=== PATIENT | female | born 1975 | race Caucasian/White ===

== ENCOUNTER 2018-05-15 11:59 | Emergency (ER) | payer OTHER ==
[2018-05-15 12:04] VITALS: BP 134/71; TEMP 97.3; BMI 18.3
--- NOTE | 2018-05-15 13:39 | CT ---
EXAM: CT of the right knee without contrast History: Medial right knee pain and swelling. Technique: Multiplanar CT images through the right knee were obtained without the administration of IV contrast Findings: Osteopenia. Atherosclerotic vascular calcifications. No acute fracture or dislocation. No evidence for osteomyelitis. There is anterior subcutaneous edema. Small joint effusion. Joint sp aces are relatively preserved. Impression: 1. No acute osseous abnormality. 2. Anterior subcutaneous edema could be due to infection or trauma. 3. Small knee joint effusion. 4. Atherosclerotic vascular disease. 5. Osteopenia
--- NOTE | 2018-05-15 14:17 | ED.PDOC ---
General ED Provider: Dr. TIRSO HUBER Chief Complaint: Knee Pain/Injury Stated Complaint: knee pain right side Time Seen by Physician: 12:00 (see photos) Mode of Arrival: Walk-In Information Source: Patient Exam Limitations: No limitations Primary Care Provider: SENAIT PRICE Nursing and Triage Documentation Reviewed and Agree: Yes Does patient meet sepsis criteria?: No System Inflammatory Response Syndrome: Not Applicable (does not recall injury) Sepsis Protocol: For patient's 13 years and over: Temp is 96.8 and below OR 101 and greater Pulse >90 BPM Resp >20/minute Acutely Altered Mental Status Are patient's symptoms suggestive of a new infection, such as: -Pneumonia -Skin, Soft Tissue -Endocarditis -UTI -Bone, Joint Infection -Implantable Device -Acute Abdominal Infection -Wound Infection -Meningitis -Blood Stream Catheter Infection -Unknown Musculoskeletal Complaint Exam - Knee Pain Complaint/Exam Mechanism of Injury: Reports: No known trauma Onset/Duration: 2 days Symptoms Are: Still present Onset of Pain: Reports: Days Initial Severity: Mild Current Severity: Mild Location: Reports: Discrete Character: Reports: Aching, Spasmodic Alleviating: Reports: Rest, Position Aggravating: Reports: Movement, Weight bearing, Prolonged standing Associated Signs and Symptoms: Reports: Swelling (mild ). Denies: Redness, Bruising, Fever, Weakness, Numbness, Tingling Able to Bear Weight: Yes Septic Arthritis Risk Factors: Reports: None Gout Risk Factors: Reports: >40 years old Knee Findings: Present: Swelling, Erythema, Tenderness. Absent: Ecchymosis, Abnormal contour, Rotation, Ligamentous instability, Laceration, Warmth, Blisters, Other joint pain, Foreign body, Limited range of motion Tenderness: Present: Pre-patellar Jessica Test Positive: No Isis Test Positive: No Differential Diagnoses: Sprain, Strain Review of Systems - Review Of Systems Constitutional: Reports: No symptoms Eyes: Reports: No symptoms Ears, Nose, Mouth, Throat: Reports: No symptoms Respiratory: Reports: No symptoms Cardiac: Reports: No symptoms GI: Reports: No symptoms : Reports: No symptoms Musculoskeletal: Reports: Joint pain (right knee ) Skin: Reports: No symptoms Neurological: Reports: No symptoms Endocrine: Reports: No symptoms Hematologic/Lymphatic: Reports: No symptoms All Other Systems: Reviewed and Negative Past Medical History - Past Medical History Previously Healthy: Yes Endocrine: Reports: DM 2 Cardiovascular: Reports: Hypertension Respiratory: Reports: None Hematological: Reports: None Gastrointestinal: Reports: None Genitourinary: Reports: None Neuro/Psych: Reports: None Musculoskeletal: Reports: None Cancer: Reports: None Last Menstrual Period: [id number] - Surgical History General Surgical History: Reports: None - Family History Family History: Reports: None - Social History Smoking Status: Current every day smoker, Heavy tobacco smoker Hx Substance Use: No Alcohol Screening: None - Immunizations Tetanus Shot up to Date: Yes Physical Exam - Physical Exam Appearance: Well-appearing, No pain distress, Well-nourished Eyes: ASHER, EOMI, Conjunctiva clear ENT: Ears normal, Nose normal, Oropharynx normal Respiratory: Airway patent, Breath sounds clear, Breath sounds equal, Respirations nonlabored Cardiovascular: RRR, Pulses normal, No rub, No murmur GI/: Soft, Nontender, No masses, Bowel sounds normal, No Organomegaly Musculoskeletal: Normal strength, ROM intact, No edema, No calf tenderness Skin: Warm, Dry, Normal color Neurological: Sensation intact, Motor intact, Reflexes intact, Cranial nerves intact, Alert, Oriented Psychiatric: Affect appropriate, Mood appropriate Interpretation - Radiology Interpretation Radiology Interpretation By: Radiologist Radiology Results: No acute changes Critical Care Note - Critical Care Note Total Time (mins): 0 Course - Course Orders, Labs, Meds: Lab Review 05/15/18 12:30 Urine Test Negative Orders Category Date Time Status TEST URINE [URINE ] Stat LAB 05/15/18 12:[address] KNEE RIGHT WITHOUT CONTRAST Stat RADS 05/15/18 12:12 Completed Vital Signs: Temp Pulse Resp BP Pulse Ox 05/15/18 11:59 97.3 F L 106 H 16 134/71 98 Departure - Departure Time of Disposition: 14:17 (knee feels warm the is evidence of abrasion surronding the knee will tx for cellulitis) Disposition: HOME SELF-CARE Discharge Problem: Knee pain Cellulitis Qualifiers: Site of cellulitis of extremity: lower extremity Instructions: Osteoarthritis (ED), Knee Sprain (ED), Arthralgia (ED), Knee Pain (ED) Condition: Good Pt referred to PMD for follow-up: Yes IPMP verified?: No Additional Instructions: Please call your Family Physician as soon as possible to schedule a follow-up appointment. Prescriptions: Amoxicillin 500 mg PO Q6HR #30 tablet Allergies/Adverse Reactions: Allergies No Known Allergies Allergy (Unverified 05/15/18 12:04) Home Medications: Ambulatory Orders Amoxicillin 500 mg PO Q6HR #30 tablet 05/15/18 Duloxetine HCl [Cymbalta] 30 mg PO DAILY 05/15/18 Gabapentin 300 mg PO TID 05/15/18 Insulin Lispro [Humalog] 100 unit SUBCUT PRN PRN 05/15/18
== END 2018-05-15 14:28 | disposition home or self-care (01) ==
LOC: ED 11:59
DX: M25.561 Pain in right knee (principal); L03.115 Cellulitis of right lower limb; F17.210 Nicotine dependence, cigarettes, uncomplicated
CPT/HCPCS: 81025; 99282

== ENCOUNTER 2018-06-09 08:31 | Emergency (ER) ==
[2018-06-09 08:35] VITALS: BP 139/73; TEMP 98; BMI 20.1
--- NOTE | 2018-06-09 08:44 | ED.PDOC ---
General ED Provider: Dr. TIRSO HUBER Chief Complaint: Tooth Problem Stated Complaint: dental pain Time Seen by Physician: 08:33 (álvaro bustamante RN present ) Mode of Arrival: Walk-In Information Source: Patient Exam Limitations: No limitations Primary Care Provider: [address] Nursing and Triage Documentation Reviewed and Agree: Yes Does patient meet sepsis criteria?: Yes If yes, has appropriate treatment been initiated?: No System Inflammatory Response Syndrome: Not Applicable Sepsis Protocol: For patient's 13 years and over: Temp is 96.8 and below OR 101 and greater Pulse >90 BPM Resp >20/minute Acutely Altered Mental Status Are patient's symptoms suggestive of a new infection, such as: -Pneumonia -Skin, Soft Tissue -Endocarditis -UTI -Bone, Joint Infection -Implantable Device -Acute Abdominal Infection -Wound Infection -Meningitis -Blood Stream Catheter Infection -Unknown EENT Complaint Exam - Dental/Oral Complaint/Exam Mechanism of Injury: No known trauma Onset/Duration: 2 days Symptoms Are: Still present Timing: Constant Initial Severity: Moderate Current Severity: Moderate Character: Reports: Aching Aggravating: Reports: Heat, Cold Alleviating: Reports: None, Heat Associated Signs and Symptoms: Reports: Swelling (face see photos). Denies: Discharge, Fever, Foul odor, Foul taste in mouth Cardiac Risk Factors: Reports: None Dental/Oral Surgical History: Reports: None Tooth Findings: Present: Gross decay, Gross caries Cervical Lymphadenopathy Present: No Facial Swelling Present: Yes Bleeding Present: No Oropharynx Findings: Absent: Clots, Active bleeding Septal Hematoma: No Foreign Body Present: No Dysphagia Present: No Drooling Present: No Asymmetrical Tonsillar Swelling Present: No Uvula Midline: Yes Candis-tonsillar Fluctuence: No Lesions: Absent: Lip, Gums, Tongue, Buccal Mucosa, Pharynx Exanthem: Absent: Lip, Gums, Tongue, Buccal Mucosa, Pharynx Vesicles: Absent: Lip, Gums, Tongue, Buccal Mucosa, Pharynx Teeth Picture: 1 - decay Differential Diagnoses: Dental Caries Review of Systems - Review Of Systems Constitutional: Reports: No symptoms Eyes: Reports: No symptoms Ears, Nose, Mouth, Throat: Reports: No symptoms Respiratory: Reports: No symptoms Cardiac: Reports: No symptoms GI: Reports: No symptoms : Reports: No symptoms Musculoskeletal: Reports: No symptoms Skin: Reports: No symptoms Neurological: Reports: No symptoms Endocrine: Reports: No symptoms Hematologic/Lymphatic: Reports: No symptoms All Other Systems: Reviewed and Negative Past Medical History - Past Medical History Previously Healthy: Yes Endocrine: Reports: DM 2 Cardiovascular: Reports: Hypertension Respiratory: Reports: None Hematological: Reports: None Gastrointestinal: Reports: None Genitourinary: Reports: None Neuro/Psych: Reports: None Musculoskeletal: Reports: None Cancer: Reports: None Last Menstrual Period: last week - Surgical History General Surgical History: Reports: None - Family History Family History: Reports: None - Social History Smoking Status: Current every day smoker, Heavy tobacco smoker Hx Substance Use: No Alcohol Screening: None Physical Exam - Physical Exam Appearance: Well-appearing, No pain distress, Well-nourished Eyes: ASHER, EOMI, Conjunctiva clear ENT: Ears normal, Nose normal, Oropharynx normal Respiratory: Airway patent, Breath sounds clear, Breath sounds equal, Respirations nonlabored Cardiovascular: RRR, Pulses normal, No rub, No murmur GI/: Soft, Nontender, No masses, Bowel sounds normal, No Organomegaly Musculoskeletal: Normal strength, ROM intact, No edema, No calf tenderness Skin: Warm, Dry, Normal color Neurological: Sensation intact, Motor intact, Reflexes intact, Cranial nerves intact, Alert, Oriented Psychiatric: Affect appropriate, Mood appropriate Critical Care Note - Critical Care Note Total Time (mins): 0 Course - Course Vital Signs: Temp Pulse Resp BP Pulse Ox 06/09/18 08:32 98.0 F 103 H 16 139/73 98 Departure - Departure Time of Disposition: 08:44 Disposition: HOME SELF-CARE Discharge Problem: Toothache Instructions: Toothache (ED) Condition: Good Pt referred to PMD for follow-up: Yes IPMP verified?: No Additional Instructions: Please call your Family Physician as soon as possible to schedule a follow-up appointment. Allergies/Adverse Reactions: Allergies No Known Allergies Allergy (Verified 06/09/18 08:34) Home Medications: Ambulatory Orders Duloxetine HCl [Cymbalta] 60 mg PO DAILY 05/15/18 Gabapentin 300 mg PO TID 05/15/18 Insulin Lispro [Humalog] 100 unit SUBCUT PRN PRN 08/24/18
[2018-06-09] MEDS ORDERED: ROCEPHIN IM STA (08:45)
[2018-06-09] MEDS ORDERED: LIDOCAINE HCL 1% SDV IM STA (08:45)
== END 2018-06-09 09:17 | disposition home or self-care (01) ==
LOC: ED 08:31
DX: K08.89 Other specified disorders of teeth and supporting structures (principal); K02.7 Dental root caries; F17.210 Nicotine dependence, cigarettes, uncomplicated
CPT/HCPCS: 96372; 99282